=== PATIENT | female | born 1960 | race Caucasian/White ===

== ENCOUNTER 2018-12-09 00:56 | Emergency (ER) | payer BC, OTHER ==
--- OUTSIDE RECORDS SUMMARY | 2018-12-09 01:00 | XMS REPORT | Summary of Care ---
:1960 Author Organization [facility] Address [address] [place] [address] Care Team Providers Name Role Phone Lam Hugo Primary Care Provider Reason for Visit Reason Comments Skin Check Encounter Details Date Type Department Care Team Description 12/04/2018 Office Visit [facility] Allan Ross Seborrheic keratosis ( Primary Dx); Dermatology- PMD History of nonmelanoma skin cancer; [address] Neoplasm of uncertain behavior of skin; [facility] [place], [place] Gomez angioma; [address] [place] [phone] [facility], 5th Floor [phone] [place] [address] Allergies No Known Allergiesdocumented as of this encounter (statuses as of 12/08/2018) Medications No known medicationsdocumented as of this encounter (statuses as of 12/08/2018) Active Problems Problem Noted Date 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 07/18/2017 documented as of this encounter (statuses as of 12/08/2018) Resolved Problems Problem Noted Date Resolved Date Dysfunctional uterine bleeding 06/02/2017 07/18/2017 Overview: Added automatically from request for surgery [id number] documented as of this encounter (statuses as of 12/08/2018) Social History Tobacco Use Types Packs/Day Years Used Date Former Smoker Cigarettes Smokeless Tobacco: Never Used Alcohol Use Drinks/Week oz/Week Comments Yes Sex Assigned at Date Recorded Not on file Job Start Date Occupation Industry Not on file Not on file Not on file Travel History Travel Start Travel End No recent travel history available. documented as of this encounter Last Filed Vital Signs Not on filedocumented in this encounter Progress Notes Davie Lopes MD - 12/04/2018 11:00 AM CDT Dermatology Clinic Note Cc: lesion on nose HPI Alice Walls is a 58 year old female who presents for a skin check. She notes that she has a scar on her nose that was removed more than one year ago and was a BCC. She says the scar is not painful but would like the spot checked to make sure there are no concerning signs. Histories Past Medical History: Diagnosis Date Cirrhosis History of hepatitis C Pap smear abnormality of cervix age 30's Portal hypertension SH: Lives in [place] Allergies No Known Allergies Medications No current outpatient medications on file prior to visit. No current facility-administered medications on file prior to visit. Review of Systems (-)=negative (+)=positive Constitutional: pain (-) Skin: growths (+), itching (-), bleeding (-), color change (-) Physical Exam There were no vitals taken for this visit. Positive (+), Negative (-) General : No acute distress, awake, well developed, well nourished Psychiatric: Normal affect, mood, judgement, and thought content Neuro: Alert, oriented to person, place, situation FACE: Negative EYES: Negative NOSE: Positive EARS: Negative SCALP: Negative NECK: Negative CHEST: Negative ABDOMEN: Negative BACK: Negative RIGHT ARM: Negative LEFT ARM: Negative RIGHT LEG: Positive LEFT LEG: Positive (-)=Negative,(+)=Positive Actinic Keratosis (A): erythematous scaling papules Gomez Hemaniogioma (CH): smooth red and purple papules Dermatitis Erythema (DE): mild to moderate erythema and scaling Dermatitis Lichenified (DL): lichenification and thickening Dermatitis Weeping (DW): weeping and excoriation Inflamed Seborrheic Keratosis (ISK): inflamed warty brown papules and plaques Millium (ML): Small white cystic papule Molluscum Contagiosum (MC): umbilicated papule Nevus Macular (NM): well circumscribed evenly pigmented macule Nevus Papular ([employer]): well circumscribed evenly pigmented papule Psoriasis Circumscribed (PC): well circumscribed erythema and scaling Psoriasis Diffuse (PD): diffuse patches of erythema and scaling Seborrheic Keratosis (SK): verrucous brown papules and plaques Scar (SR): cicatricial change Verruca Vulgarus (W): warty hyperkeratotic papule Assessment/Plan 1. [id number] right posterior leg - discussed benign nature; patient reassured - monitor 2. Neoplasm of Uncertain Behavior - right hand - Ddx: SCC-KA vs HAK - Discussed differential diagnosis and treatment options with patient. Risks discussed (pain, infection, bleeding, scarring). Verbal consent obtained - Area prepped with alcohol. Local anesthesia obtained with 1% lidocaine with epinephrine. 1.0 cm tangential bx performed. Specimen sent to pathology for analysis, pt to be contacted with results. Hemostasis obtained with AlCl. Vaseline and bandage applied. Wound care discussed. 3. Seborrheic Keratoses - Discussed likely etiology, expected course and management options with patient - Benign, reassurance offered - LN2 offered 4. Gomez Angioma - Discussed likely etiology, expected course and management options with patient - Benign, no treatment necessary 5. Hx of NMSC BCC of nose s/p treatment - well healed scar - no sign of recurrence - monitor RTC 12 months Patient was seen and plan of care was discussed with Dr. Ross. Swami Marianne MD PGY 2 Dermatology Resident documented in this encounter Plan of Treatment Date Type Specialty Care Team Description 12/18/2018 Office Visit Dermatology Allan Ross MD [address] [place] [phone] 03/12/2019 Office Visit Dermatology Allan Ross MD [address] [place] [phone] 03/12/2019 Office Visit Obstetrics & Gynecology Yu Milton DNP [address] [place], [place] [phone] Health Maintenance Due Date Last Done Comments HEPATITIS C (HCV) SCREEN 1960 DTaP,Tdap,and Td Vaccines (1 - 10/07/1979 Tdap) COLONOSCOPY 2010 Zoster Recombinant Vaccine 2010 (SHINGRIX) (1 of 2) LUNG CANCER SCREEN: Recommended 10/07/2015 for age 55-80 with 30 + pack year history MAMMOGRAM 10/15/2017 10/15/2016 INFLUENZA VACCINE (#1) 2018 PAP SMEAR 10/16/2019 10/15/2016 PNEUMOCOCCAL 0-64 YEARS COMBINED Aged Out No longer eligible based on SERIES patient's age to complete this topic documented as of this encounter Procedures Procedure Name Priority Date/Time Associated Diagnosis Comments DERMATOPATHOLOGY TISSUE Routine 12/04/2018 Results for this EXAM procedure are in the results section. documented in this encounter Results DERMATOPATHOLOGY TISSUE EXAM (12/04/2018) Specimen Performing Organization Address City/State/Zipcode Phone Number [facility] documented in this encounter Visit Diagnoses Diagnosis Seborrheic keratosis - Primary Other seborrheic keratosis History of nonmelanoma skin cancer Personal history of other malignant neoplasm of skin Neoplasm of uncertain behavior of skin Gomez angioma Nevus, non-neoplastic Caf au la[employer] spot Other dyschromia documented in this encounter Insurance Payer Benefit Plan Subscriber ID Effective Dates Phone Address Type / Group BCBS OF [facility] [id number] 2016-Prese [phone] [address] PPO/POS [facility] [id number] [place] [address] documented as of this encounter
--- OUTSIDE RECORDS SUMMARY | 2018-12-09 01:00 | XMS REPORT | Clinical Summary ---
:1960 Author Organization [facility] Address [address] [place] [address] Care Team Providers Name Role Phone Lam Hugo MD Primary Care Provider Allergies No Known Allergies Medications Medication Sig Dispensed Refills Start End Date Status Date lactulose Take 30 mLs (20 g 500 mL 9 10/31/19 Discontinued (CHRONULAC) 10 total) by mouth 3 7 19 gram/15 mL (three) times daily solutionIndicatio for 10 days. ns: Esophageal varices in cirrhosis (HCC), Other cirrhosis of liver (HCC) lactulose Take 30 mLs (20 g 500 mL 9 11/10/19 (CHRONULAC) 10 total) by mouth 3 9 19 gram/15 mL (three) times daily solutionIndicatio for 10 days. ns: Esophageal varices in cirrhosis (HCC), Other cirrhosis of liver (HCC), Constipation, unspecified constipation type, Screening for malignant neoplasm hepatitis B Inject 1 Syringe 1 Syringe 2 10/31/19 vacc-CpG 1018, intramuscularly once 9 19 PF, 20 mcg/0.5 mL for 1 dose To be SyrgIndications: done at 0, 1, 6 Other cirrhosis month intervals.. of liver (HCC), Need for vaccination against hepatitis B virus Active Problems Problem Noted Date Presumed fatty liver 07/29/2015 SVR (10/14/14)-Hepatitis C virus infection without hepatic coma, 07/31/2014 unspecified chronicity Insomnia 03/13/2014 Elevated ferritin 11/07/2012 Prolonged INR 11/07/2012 Cirrhosis of liver 10/04/2012 Portal hypertension 10/04/2012 Esophageal varices in cirrhosis 10/04/2012 Screening for malignant neoplasm 10/04/2012 Screening for immunity disorders 10/04/2012 Anxiety 10/04/2012 Splenomegaly 10/04/2012 Obesity 10/04/2012 Encounters Date Type Specialty Care Team Description 11/17/2018 Hospital Encounter Radiology Azra Valente Esophageal varices in cirrhosis; MD Zay Other cirrhosis of liver (HCC); Constipation, unspecified constipation type; Screening for malignant neoplasm; Need for vaccination against hepatitis B virus; Elevated glucose 11/16/2018 Outside Orders Lam Hugo MD 10/30/2018 Office Visit Hepatology Azra Valente Other cirrhosis of liver ( HCC) (Primary Dx); MD Zay Esophageal varices in cirrhosis; Judy Norman Constipation, unspecified constipation type; MARKY Argueta Screening for malignant neoplasm; Need for vaccination against hepatitis B virus; Elevated glucose 08/16/2018 Abstract Hepatology Kayy Frazier RN 08/16/2018 Orders Only Hepatology Kayy Frazier, Cirrhosis of liver RN without ascites, unspecified hepatic cirrhosis type (HCC) (Primary Dx) after 12/08/2017 Immunizations Name Dates Previously Given Next Due Influenza TIV (IM) 02/14/2014 Family History Medical History Relation Name Comments Other Father Triple Bypass Diabetes Mother Thyroid disease Sister Relation Name Status Comments Father Alive Mother Alive Sister Alive Sister Social History Tobacco Use Types Packs/Day Years Used Date Never Smoker Smokeless Tobacco: Never Used Alcohol Use Drinks/Week oz/Week Comments No Sex Assigned at Date Recorded Not on file Job Start Date Occupation Industry Not on file Not on file Not on file Travel History Travel Start Travel End No recent travel history available. Last Filed Vital Signs Vital Sign Reading Time Taken Blood Pressure 126/72 10/30/2018 2:37 PM CDT Pulse 70 10/30/2018 2:37 PM CDT Temperature 36.9 C (98.4 F) 10/30/2018 2:37 PM CDT Respiratory Rate 18 10/30/2018 2:37 PM CDT Oxygen Saturation 97% 10/30/2018 2:37 PM CDT Inhaled Oxygen Concentration - - Weight 91 kg (200 lb 11.2 oz) 10/30/2018 2:37 PM CDT Height 160 cm (5' 3") 10/30/2018 2:37 PM CDT Body Mass Index 35.55 10/30/2018 2:37 PM CDT Plan of Treatment Date Type Specialty Care Team Description 05/02/2019 Office Visit Hepatology Resource, [facility] E Procedures Procedure Name Priority Date/Time Associated Diagnosis Comments MR ABDOMEN Routine 11/17/2018 2:57 Esophageal varices Results for this WITH/WITHOUT IV PM CDT in cirrhosis procedure are in CONTRAST Other cirrhosis of the results liver (HCC) section. Constipation, unspecified constipation type Screening for malignant neoplasm Need for vaccination against hepatitis B virus Elevated glucose POCT-CREATININE Routine 11/17/2018 2:20 Results for this PM CDT procedure are in the results section. PLATELET ESTIMATION Routine 08/31/2018 1:47 Results for this PM CDT procedure are in the results section. BASIC METABOLIC PANEL Routine 08/31/2018 1:47 Cirrhosis of liver Results for this (7) PM CDT without ascites, procedure are in unspecified hepatic the results cirrhosis type (HCC) section. HEPATIC FUNCTION Routine 08/31/2018 1:47 Cirrhosis of liver Results for this PANEL PM CDT without ascites, procedure are in unspecified hepatic the results cirrhosis type (HCC) section. CBC W/PLT COUNT & Routine 08/31/2018 1:47 Cirrhosis of liver Results for this AUTO DIFFERENTIAL PM CDT without ascites, procedure are in unspecified hepatic the results cirrhosis type (HCC) section. PROTHROMBIN TIME/INR Routine 08/31/2018 1:47 Cirrhosis of liver Results for this PM CDT without ascites, procedure are in unspecified hepatic the results cirrhosis type (HCC) section. ALPHA FETOPROTEIN Routine 08/31/2018 1:47 Cirrhosis of liver Results for this (AFP), TUMOR MARKER PM CDT without ascites, procedure are in unspecified hepatic the results cirrhosis type (HCC) section. after 12/08/2017 Results MR abdomen with/without IV contrast (11/17/2018 2:57 PM CDT) Specimen Narrative Performed At FINAL REPORT [employer] [facility]UST TECHNIQUE: MRI of the abdomen WITHOUT and WITH intravenous contrast. INDICATION: 58-year-old woman with cirrhosis. COMPARISON: Abdomen MRI 11/25/2017. FINDINGS: LOWER THORAX: Unremarkable. LIVER: Nodular liver contour, consistent with cirrhosis. No suspicious hepatic lesions. Persistent scattered tiny subcentimeter arterially enhancing foci in the liver without corresponding T2 signal abnormality, washout, or pseudocapsule. BILIARY: Gallbladder is unremarkable. No biliary ductal dilatation or filling defect. SPLEEN: The spleen is prominent and measures 17.4 cm in the craniocaudal dimension. PANCREAS: No focal masses or ductal dilatation. ADRENALS: No adrenal nodules. KIDNEYS/URETERS: No hydronephrosis or solid mass lesions. Unchanged 1.2 x 1.3 cm right renal cyst. Unchanged subcentimeter left renal cysts. PERITONEUM/RETROPERITONEUM: No free fluid. LYMPH NODES: No lymphadenopathy. VESSELS: Nonocclusive thrombus in the right portal vein extends into the anterior branch, new since prior MRI. The remaining portal system and hepatic veins are patent. Main portal vein measures up to 1.7 cm in diameter. Esophageal and perisplenic varices with spontaneous splenorenal shunt. Recanalized umbilical vein. Abdominal aorta is within normal limits in caliber. GI TRACT: No distention or wall thickening. BONES AND SOFT TISSUES: Degenerative changes of the visualized spine. Unchanged 0.8 cm fat-containing lesion in the left aspect of L1 vertebral body, likely an intraosseous hemangioma. Soft tissues are unremarkable. IMPRESSION: Cirrhosis with portal hypertension. No suspicious liver lesions. Persistent tiny subcentimeter arterially enhancing foci in the liver are indeterminate and may be shunts. Nonocclusive thrombus in the right portal vein extending into the anterior branch, new since prior MRI. Signed: Romel Briggs MD Report Verified Date/Time:11/17/2018 16:16:22 Reading Location: [address] Radiology Reading Room Procedure Note Interface, External Ris In - 11/17/2018 4:18 PM CDT FINAL REPORT TECHNIQUE: MRI of the abdomen WITHOUT and WITH intravenous contrast. INDICATION: 58-year-old woman with cirrhosis. COMPARISON: Abdomen MRI 11/25/2017. FINDINGS: LOWER THORAX: Unremarkable. LIVER: Nodular liver contour, consistent with cirrhosis. No suspicious hepatic lesions. Persistent scattered tiny subcentimeter arterially enhancing foci in the liver without corresponding T2 signal abnormality, washout, or pseudocapsule. BILIARY: Gallbladder is unremarkable. No biliary ductal dilatation or filling defect. SPLEEN: The spleen is prominent and measures 17.4 cm in the craniocaudal dimension. PANCREAS: No focal masses or ductal dilatation. ADRENALS: No adrenal nodules. KIDNEYS/URETERS: No hydronephrosis or solid mass lesions. Unchanged 1.2 x 1.3 cm right renal cyst. Unchanged subcentimeter left renal cysts. PERITONEUM/RETROPERITONEUM: No free fluid. LYMPH NODES: No lymphadenopathy. VESSELS: Nonocclusive thrombus in the right portal vein extends into the anterior branch, new since prior MRI. The remaining portal system and hepatic veins are patent. Main portal vein measures up to 1.7 cm in diameter. Esophageal and perisplenic varices with spontaneous splenorenal shunt. Recanalized umbilical vein. Abdominal aorta is within normal limits in caliber. GI TRACT: No distention or wall thickening. BONES AND SOFT TISSUES: Degenerative changes of the visualized spine. Unchanged 0.8 cm fat-containing lesion in the left aspect of L1 vertebral body, likely an intraosseous hemangioma. Soft tissues are unremarkable. IMPRESSION: Cirrhosis with portal hypertension. No suspicious liver lesions. Persistent tiny subcentimeter arterially enhancing foci in the liver are indeterminate and may be shunts. Nonocclusive thrombus in the right portal vein extending into the anterior branch, new since prior MRI. Signed: Romel Briggs MD Report Verified Date/Time: 11/17/2018 16:16:22 Reading Location: [address] Radiology Reading Room Performing Organization Address [facility] Phone Number RIS POC-Creatinine (11/17/2018 2:20 PM CDT) POC-Creatinine 0.4 (L)Comment: TESTED AT 0.6 - 1.3 mg/dL [facility] [address] [place] [address] POC-EGFR 164 mL/min/1.73M2 [facility] CENTER Specimen Blood Performing Organization Address City/[facility]/Zipcode Phone Number [address] [address] CENTER PLATELET ESTIMATION (08/31/2018 1:47 PM CDT) Platelet Estimate DECREASED (A) ADEQUATE [facility] Specimen Narrative Performed At FASTING:NO [facility] FASTING: NO Resulting Agency Comment Performing Organization Information: Site ID: [id number] Name: [facility] Address: [address] [place] [phone] Director: Licha Christy Performing Organization Address [facility] Phone Number [facility] [address] [place] [address] [facility] Alpha fetoprotein (AFP), tumor marker (08/31/2018 1:47 PM CDT) Alpha-Fetoprotein 7.8 (H) ng/mL [facility] Comment: Reference Range: <6.1 The use of AFP as a tumor marker in females is not recommended. This test was performed using the Carl Aleah chemiluminescent method. Values obtained from different assay methods cannot be used interchangeably. AFP levels, regardless of value, should not be interpreted as absolute evidence of the presence or absence of disease. Specimen Blood Narrative Performed At FASTING:NO [facility] FASTING: NO Resulting Agency Comment Performing Organization Information: Site ID: [id number] Name: [facility] Address: [address] [place] [phone] Director: Dr. Noble Harding Performing Organization Address [facility] Phone Number [facility] [address] [place] [address] [facility] Pro-time/INR (08/31/2018 1:47 PM CDT) INR 1.1 [facility] Comment: Reference Range 0.9-1.1 Moderate-intensity Warfarin Therapy 2.0-3.0 Higher-intensity Warfarin Therapy 3.0-4.0 PT 11.3 9.0 - 11.5 sec [facility] Comment: For more information on this test, go to: http://education.BeatSwitch.Braintech/faq/INL734 Specimen Blood Narrative Performed At FASTING:NO [facility] FASTING: NO Resulting Agency Comment Performing Organization Information: Site ID: [id number] Name: [facility] Address: [address] [place] [phone] Director: Licha Christy Performing Organization Address [facility] Phone Number [facility] [address] [place] [address] [facility] CBC with platelet count + automated diff (08/31/2018 1:47 PM CDT) WBC 3.4 (L) 3.8 - 10.8 Thousand/uL [facility] RBC 4.49 3.80 - 5.10 Million/uL [facility] Hemoglobin 14.1 11.7 - 15.5 g/dL [facility] Hematocrit 40.7 35.0 - 45.0 % [facility] MCV 90.6 80.0 - 100.0 fL [facility] MCH 31.4 27.0 - 33.0 pg [facility] MCHC 34.6 32.0 - 36.0 g/dL [facility] RDW 12.9 11.0 - 15.0 % [facility] Platelets 67 (L) 140 - 400 Thousand/uL [facility] MPV 11.6 7.5 - 12.5 fL [facility] # Neutros 1,652 1,500 - 7,800 cells/uL [facility] # Lymphs 1,387 850 - 3,900 cells/uL [facility] # Monos 289 200 - 950 cells/uL [facility] # Eos 61 15 - 500 cells/uL [facility] # Baso 10 0 - 200 cells/uL [facility] % Neutros 48.6 % [facility] % Lymphs 40.8 % [facility] % Monos 8.5 % [facility] % Eos 1.8 % [facility] % Baso 0.3 % [facility] Specimen Blood Narrative Performed At FASTING:NO [facility] FASTING: NO Resulting Agency Comment Performing Organization Information: Site ID: [id number] Name: [facility] Address: [address] [place] [phone] Director: Licha Christy Performing Organization Address City/State/Zipcode Phone Number [facility] [address] [place] [address] [facility] Hepatic function panel (08/31/2018 1:47 PM CDT) Protein, Total, Serum 7.2 6.1 - 8.1 g/dL [facility] Albumin 4.3 3.6 - 5.1 g/dL [facility] GLOBULIN (QUEST) 2.9 1.9 - 3.7 g/dL (calc) [facility] Albumin Globulin Ratio 1.5 1.0 - 2.5 (calc) [facility] Bilirubin, Total 1.2 0.2 - 1.2 mg/dL [facility] Bilirubin, Direct 0.2 < OR=0.2 mg/dL [facility] Bilirubin, Indirect 1.0 0.2 - 1.2 mg/dL (calc) [facility] Alkaline Phosphatase, S 115 33 - 130 U/L [facility] AST (SGOT) 17 10 - 35 U/L [facility] ALT (SGPT) 17 6 - 29 U/L [facility] Specimen Blood Narrative Performed At FASTING:NO [facility] FASTING: NO Resulting Agency Comment Performing Organization Information: Site ID: [id number] Name: [facility] Address: [address] [place] [phone] Director: Licha Christy Performing Organization Address [facility] Phone Number [facility] [address] [place] [address] [place] Basic Metabolic Panel (08/31/2018 1:47 PM CDT) Glucose 266 (H) 65 - 139 mg/dL [facility] Comment: Non-fasting reference interval BUN 18 7 - 25 mg/dL [facility] Creatinine 0.62 0.50 - 1.05 mg/dL [facility] Comment: For patients >49 years of age, the reference limit for Creatinine is approximately 13% higher for people identified as -[place]. eGFR If NonAfricn Am 100 > OR=60 mL/min/1.73m2 [facility] eGFR If Africn Am 116 > OR=60 mL/min/1.73m2 [facility] BUN/Creatinine Ratio NOT APPLICABLE 6 - 22 (calc) [facility] Sodium 140 135 - 146 mmol/L [facility] Potassium, Serum 3.7 3.5 - 5.3 mmol/L [facility] Chloride 102 98 - 110 mmol/L [facility] Carbon Dioxide, Total 29 20 - 32 mmol/L [facility] Calcium, Serum 9.6 8.6 - 10.4 mg/dL [facility] Specimen Blood Narrative Performed At FASTING:NO [facility] FASTING: NO Resulting Agency Comment Performing Organization Information: Site ID: [id number] Name: [facility] Address: [address] [place] [phone] Director: Licha Christy Performing Organization Address [facility] Phone Number [facility] [address] [place] [address] [place] after 12/08/2017 Insurance Payer Benefit Plan / Subscriber ID Type Phone Address Group BLUE CROSS/BLUE BCBS PPO POS EPO xxxxxxxxxxxx PPO [phone] [address] [place] [address] (Work)
--- OUTSIDE RECORDS SUMMARY | 2018-12-09 01:00 | XMS REPORT | Summary of Care ---
:1960 Author Organization [facility] Address [address] [place] [address] Care Team Providers Name Role Phone Lam Hugo Primary Care Provider Reason for Visit Reason Comments Skin Check Encounter Details Date Type Department Care Team Description 12/04/2018 Office Visit [facility] Allan Ross Seborrheic keratosis ( Primary Dx); Dermatology- PMD History of nonmelanoma skin cancer; [address] Neoplasm of uncertain behavior of skin; [facility] [place], [place] Gomez angioma; [address] [place] [phone] [facility], 5th Floor [phone] [place] [address] Allergies No Known Allergiesdocumented as of this encounter (statuses as of 12/04/2018) Medications No known medicationsdocumented as of this encounter (statuses as of 12/04/2018) Active Problems Problem Noted Date 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 07/18/2017 documented as of this encounter (statuses as of 12/04/2018) Resolved Problems Problem Noted Date Resolved Date Dysfunctional uterine bleeding 06/02/2017 07/18/2017 Overview: Added automatically from request for surgery [id number] documented as of this encounter (statuses as of 12/04/2018) Social History Tobacco Use Types Packs/Day Years [...] age 30's Portal hypertension SH: Lives in [employer] Allergies No Known Allergies Medications No current [...] well circumscribed evenly pigmented macule Nevus Papular (PROFESSOR OF THEOLOGY): well circumscribed evenly pigmented papule Psoriasis Circumscribed (PC): well circumscribed erythema and scaling Psoriasis Diffuse (PD): diffuse patches of erythema and scaling Seborrheic Keratosis (SK): verrucous brown papules and plaques Scar (SR): cicatricial change Verruca Vulgarus (W): warty hyperkeratotic papule Assessment/Plan 1. Bouc-pa-zbly right posterior leg - discussed benign nature; [...] Treatment Date Type Specialty Care Team Description 03/12/2019 Office Visit Dermatology Allan Ross MD [address] [place] [phone] Health Maintenance Due Date Last Done Comments HEPATITIS C (HCV) SCREEN 1960 DTaP,Tdap,and Td Vaccines (1 - 10/07/1979 Tdap) COLONOSCOPY 2010 Zoster Recombinant Vaccine 2010 (SHINGRIX) (1 of 2) LUNG CANCER SCREEN: Recommended 10/07/2015 for age 55-80 with 30 + pack year history MAMMOGRAM 10/15/2017 10/15/2016 INFLUENZA VACCINE 12/24/2018 PAP SMEAR 10/16/2019 10/15/2016 PNEUMOCOCCAL 0-64 YEARS COMBINED Aged Out No longer eligible based on SERIES patient's age to complete this topic documented as of this encounter Results Not on filedocumented in this encounter Visit Diagnoses Diagnosis Seborrheic keratosis - Primary Other seborrheic keratosis History of nonmelanoma skin cancer Personal history of other malignant neoplasm of skin Neoplasm of uncertain behavior of skin Gomez angioma Nevus, non-neoplastic Caf au la[employer] spot Other dyschromia documented in this encounter Insurance Payer Benefit Plan Subscriber ID Effective Dates Phone Address Type / Group BCBS [facility] [id number] 2016-Prese [phone] [address] PPO/POS [facility] [id number] [place] [address] documented as of this encounter
--- OUTSIDE RECORDS SUMMARY | 2018-12-09 01:00 | XMS REPORT | Summary of Care ---
:1960 Author Organization [facility] Address [address] [place] [id number] Care Team Providers Name Role Phone Lam Hugo Primary Care Provider Reason for Visit Reason Comments Skin Check Encounter Details Date Type Department Care Team Description 12/04/2018 Office Visit [facility] Allan Ross Seborrheic keratosis ( Primary Dx); Dermatology- PMD History of nonmelanoma skin cancer; [address] Neoplasm of uncertain behavior of skin; [facility] [place], [place] Gomez angioma; [address] [place] [phone] [facility], 5th Floor [phone] [place] [address] Allergies No Known Allergiesdocumented as [...] Overview: Added automatically from request for surgery [id number] documented as of this encounter (statuses as [...] age 30's Portal hypertension SH: Lives in [place] Allergies No Known Allergies Medications No current [...] well circumscribed evenly pigmented macule Nevus Papular (SAFETY CONSULTANT): well circumscribed evenly pigmented papule Psoriasis Circumscribed (PC): well circumscribed erythema and scaling Psoriasis Diffuse (PD): diffuse patches of erythema and scaling Seborrheic Keratosis (SK): verrucous brown papules and plaques Scar (SR): cicatricial change Verruca Vulgarus (W): warty hyperkeratotic papule Assessment/Plan 1. Ccob-un-dqyd right posterior leg - discussed benign nature; [...] Visit Dermatology Allan Ross MD [address] [place] [phone] Health Maintenance Due Date Last Done Comments [...] Dates Phone Address Type / Group BCBS [facility] [id number] 2016-Prese [phone] [address] PPO/POS [facility] [id number] [place] [address] documented as of this encounter
--- OUTSIDE RECORDS SUMMARY | 2018-12-09 01:00 | XMS REPORT | Summary of Care ---
:1960 Author Organization [facility] Address [address] [place] [address] Care Team Providers Name Role Phone Lam Hugo Primary Care Provider Encounter Details Date Type Department Care Team Description 12/04/2018 Letter (Out) [facility] [employer] Messages Doctor Unassigned, No [address] [facility] [place] [phone] [address] [facility] [phone] [place] [address] Allergies No Known Allergiesdocumented as of this [...] Overview: Added automatically from request for surgery [id number] documented as of this encounter (statuses as [...] Signs Not on filedocumented in this encounter Plan of Treatment Health Maintenance Due Date Last Done Comments [...] Results Not on filedocumented in this encounter Insurance Payer Benefit Plan Subscriber ID Effective Dates Phone Address Type / Group [employer] [place] [id number] 2016-Yury [phone] [address] PPO/POS [place] [id number] [place] [address] documented as of this encounter
--- OUTSIDE RECORDS SUMMARY | 2018-12-09 01:00 | XMS REPORT | Summary of Care ---
:1960 Author Organization [facility] Address [address] [place] [address] Care Team Providers Name Role Phone Lam Hugo Primary Care Provider Encounter Details Date Type Department Care Team Description 12/04/2018 Orders Only [facility] Doctor Unassigned, No [address] [facility] [place] [address] 301 [place] [address] Allergies No Known Allergiesdocumented as of this [...] Overview: Added automatically from request for surgery [id number] documented as of this encounter (statuses as [...] C (HCV) SCREEN 1960 DTaP,Tdap,and Td Vaccines (10/07/1979 Tdap) COLONOSCOPY 2010 Zoster Recombinant Vaccine 2010 [...] Procedure Name Priority Date/Time Associated Diagnosis Comments ASSIGNMENT OF BENEFITS Routine 12/04/2018 11:06 AM CDT documented in this encounter Results Not on filedocumented in this encounter Insurance Payer Benefit Plan Subscriber ID Effective Dates Phone Address Type / Group [facility] [id number] 2016-Yury [phone] [address] PPO/POS [place] nt [id number] [place] [address] documented as of this encounter
[2018-12-09] MEDS ORDERED: HYDROCODONE/APAP 7.5/325 MG TAB ONE (01:13)
--- NOTE | 2018-12-09 01:14 | ER ---
Nurse's Notes [facility] Name: Alice Walls Age: 58 yrs Sex: Female : 1960 Arrival Date: 12/09/2018 Time: 00:58 Bed 5 Private MD: Lam Hugo T Diagnosis: Radiculopathy Presentation: 12/09 01:04 Presenting complaint: Patient states: I slept last Tuesday with my right hand under my rv head and it is hurting until now. I thought it will go away. Today, I went to Urgent care near where I work and he asked me to do a bunch of staff. pain is worse. I can't put pressure on it but I can move it in all direction. Transition of care: patient was not received from another setting of care. Onset of symptoms was December 08, 2018 at 08:00. Risk Assessment: Do you want to hurt yourself or someone else? Patient reports no desire to harm self or others. Initial Sepsis Screen: Does the patient meet any 2 criteria? No. Patient's initial sepsis screen is negative. Does the patient have a suspected source of infection? No. Patient's initial sepsis screen is negative. Care prior to arrival: None. 01:04 Method Of Arrival: Ambulatory rv 01:04 Acuity: SHAHZAD 4 rv Triage Assessment: 01:08 General: Appears in no apparent distress. uncomfortable, Behavior is calm, cooperative. ak1 Pain: Complains of pain in right scapular area. Historical: - Allergies: 01:09 No Known Allergies; rv - Home Meds: 01:09 None [Active]; rv - PMHx: 01: None; rv - PSHx: 01:09 Appendectomy; rv - Immunization history:: Adult Immunizations up to date. - Social history:: Smoking status: unknown. - Ebola Screening: : No symptoms or risks identified at this time. Screenin:08 Abuse screen: Denies threats or abuse. Denies injuries from another. Nutritional ak1 screening: No deficits noted. Tuberculosis screening: No symptoms or risk factors identified. Fall Risk None identified. Assessment: 01:09 General: Appears in no apparent distress. uncomfortable, Behavior is calm, cooperative. ak1 Pain: Complains of pain in right scapular area. Neuro: Level of Consciousness is awake, alert, obeys commands, Oriented to person, place, time, situation, Moves all extremities. Cardiovascular: No deficits noted. Respiratory: No deficits noted. GI: No signs and/or symptoms were reported involving the gastrointestinal system. : No signs and/or symptoms were reported regarding the genitourinary system. EENT: No signs and/or symptoms were reported regarding the EENT system. Derm: No signs and/or symptoms reported regarding the dermatologic system. Musculoskeletal: Capillary refill < 3 seconds, Range of motion: intact in all extremities, pt c/o pain to right scapula. pt seen at urgent care today with steroids and muscle relaxant given along with Xray of right shoulder. pt c/o increased pain and unable to sleep. 01:20 Reassessment: Patient appears in no apparent distress at this time. No changes from ak1 previously documented assessment. Patient and/or family updated on plan of care and expected duration. Pain level reassessed. Patient is alert, oriented x 3, equal unlabored respirations, skin warm/dry/pink. pt verbalized understanding of sling instruction. Vital Signs: 01:08 BP 145 / 81; Pulse 75; Resp 18; Temp 97.9(O); Pulse Ox 99% on R/A; Weight 89.81 kg (R); ak1 Height 5 ft. 3 in. (160.02 cm) (R); Pain 8/10; 01:18 BP 141 / 72; Pulse 80; Resp 18; Pulse Ox 98% on R/A; mw2 01:08 Body Mass Index 35.07 (89.81 kg, 160.02 cm) ak1 ED Course: 00:58 Patient arrived in ED. es 01:01 Lam Hugo MD is Private Physician. es 01:01 Agnieszka Bobby, KRISTAN is Primary Nurse. ak1 01:02 Indira Resendiz [facility]-C [facility]. kb 01:02 Jacobo Bishop MD is Attending Physician. kb 01:07 Triage completed. rv 01:11 Patient has correct armband on for positive identification. Bed in low position. Call ak1 light in reach. Side rails up X 1. Adult w/ patient. Pulse ox on. NIBP on. pt stated she has a ride home. 01:19 Arm band placed on Patient placed in an exam room, on a stretcher, on pulse oximetry, ak1 Patient notified of wait time. 01:19 No provider procedures requiring assistance completed. Patient did not have IV access ak1 during this emergency room visit. Administered Medications: :18 Drug: Granby (7.5 mg-325 mg) 1 tabs Route: PO; ak1 :19 Follow up: Response: No adverse reaction; Medication administered at discharge.; RASS: ak1 Alert and Calm (0) Outcome: 01:13 Discharge ordered by MD. florez :19 Discharged to home ambulatory, with family. ak1 : Condition: good 01:19 Discharge instructions given to patient, Instructed on discharge instructions, follow up and referral plans. Demonstrated understanding of instructions, follow-up care. :23 Patient left the ED. ak1 Signatures: Indira Resendiz, HELIX COIL WINDER-C HELIX COIL WINDER-Velia Alex Amber, RN RN ak1 Cm Verma 2 Lucas Rossi RN RN rv
--- NOTE | 2018-12-09 01:14 | EDPHYS ---
Physician Documentation [facility] Name: Alice Walls Age: 58 yrs Sex: Female : 1960 Arrival Date: 12/09/2018 Time: 00:58 Bed 5 Private MD: Lam Hugo T ED Physician Jacobo Bishop HPI: 12/09 01:09 This 58 yrs old Female presents to ER via Ambulatory with complaints of kb Shoulder Pain. 01:09 The patient or guardian complains of pain, that is acute, tenderness. right scapular kb area. Context: The problem was sustained at home, resulted from sleeping with arm over head, The patient reports no decreased range of motion. The patient reports no obvious deformity. Onset: The symptoms/episode began/occurred 1 week(s) ago. Modifying factors: the symptoms are alleviated by nothing. The symptoms are aggravated by nothing. Associated signs and symptoms: The patient has no apparent associated signs or symptoms. Severity of symptoms: At their worst the symptoms were mild, moderate, in the emergency department the symptoms are unchanged. Treatment prior to arrival includes: no previous treatment. The patient has not experienced similar symptoms in the past. The patient has not recently seen a physician. Pt reports she slept with her arm over her head and woke up with a crick in her neck on Tuesday morning. States the pain radiated down her arm and then settled under her scapula. Went to the clinic at her work today and the provider there made her do some exercises and stretches that have made the pain under the scapula worse. Denies neck pain now. States pain still radiates down the back of her arm to her hand. Had x-ray today that was negative and was prescribed muscle relaxers and steroids that she hasn't started yet. . Historical: - Allergies: 01:09 No Known Allergies; rv - Home Meds: 01:09 None [Active]; rv - PMHx: 01: None; rv - PSHx: :09 Appendectomy; rv - Immunization history:: Adult Immunizations up to date. - Social history:: Smoking status: unknown. - Ebola Screening: : No symptoms or risks identified at this time. ROS: 01:07 Constitutional: Negative for fever, chills, and weight loss, Cardiovascular: Negative kb for chest pain, palpitations, and edema, Respiratory: Negative for shortness of breath, cough, wheezing, and pleuritic chest pain, Abdomen/GI: Negative for abdominal pain, nausea, vomiting, diarrhea, and constipation, Back: Negative for injury and pain, : Negative for injury, bleeding, discharge, and swelling, Skin: Negative for injury, rash, and discoloration, Neuro: Negative for headache, weakness, numbness, tingling, and seizure. 01:07 MS/extremity: Positive for pain, of the right scapular area. Exam: 01:07 Constitutional: This is a well developed, well nourished patient who is awake, alert, kb and in no acute distress. Head/Face: Normocephalic, atraumatic. Neck: Trachea midline, no thyromegaly or masses palpated, and no cervical lymphadenopathy. Supple, full range of motion without nuchal rigidity, or vertebral point tenderness. No Meningismus. Chest/axilla: Normal chest wall appearance and motion. Nontender with no deformity. No lesions are appreciated. Cardiovascular: Regular rate and rhythm with a normal S1 and S2. No gallops, murmurs, or rubs. Normal PMI, no JVD. No pulse deficits. Respiratory: Lungs have equal breath sounds bilaterally, clear to auscultation and percussion. No rales, rhonchi or wheezes noted. No increased work of breathing, no retractions or nasal flaring. Abdomen/GI: Soft, non-tender, with normal bowel sounds. No distension or tympany. No guarding or rebound. No evidence of tenderness throughout. Back: No spinal tenderness. No costovertebral tenderness. Full range of motion. Skin: Warm, dry with normal turgor. Normal color with no rashes, no lesions, and no evidence of cellulitis. Neuro: Awake and alert, GCS 15, oriented to person, place, time, and situation. Cranial nerves II-XII grossly intact. Motor strength 5/5 in all extremities. Sensory grossly intact. Cerebellar exam normal. Normal gait. 01:07 Musculoskeletal/extremity: Extremities: grossly normal except: noted in the right scapular area: pain, tenderness, ROM: intact in all extremities, Circulation is intact in all extremities. Sensation intact. Vital Signs: 01:08 BP 145 / 81; Pulse 75; Resp 18; Temp 97.9(O); Pulse Ox 99% on R/A; Weight 89.81 kg (R); ak1 Height 5 ft. 3 in. (160.02 cm) (R); Pain 8/10; 01:18 BP 141 / 72; Pulse 80; Resp 18; Pulse Ox 98% on R/A; mw2 01:08 Body Mass Index 35.07 (89.81 kg, 160.02 cm) ak1 MDM: 01:02 Patient medically screened. kb 01:07 Data reviewed: vital signs, nurses notes. Data interpreted: Pulse oximetry: on room air kb is 100 %. Interpretation: normal. Counseling: I had a detailed discussion with the patient and/or guardian regarding: the historical points, exam findings, and any diagnostic results supporting the discharge/admit diagnosis, the need for outpatient follow up, a family practitioner, to return to the emergency department if symptoms worsen or persist or if there are any questions or concerns that arise at home. 01:12 ED course: Educated to take the previously prescribed medications and use sling for kb comfort. . 12/09 01:07 Order name: Sling; Complete Time: 01:09 kb Administered Medications: 01:18 Drug: Roland (7.5 mg-325 mg) 1 tabs Route: PO; ak1 01:19 Follow up: Response: No adverse reaction; Medication administered at discharge.; RASS: ak1 Alert and Calm (0) Disposition: 04:42 Co-signature as Attending Physician, Jacobo Bishop MD I agree with the assessment and tw4 plan of care. Disposition: 12/09/18 01:13 Discharged to Home. Impression: Radiculopathy. - Condition is Stable. - Discharge Instructions: Cervical Radiculopathy, [id number]. - Medication Reconciliation Form, Thank You Letter, Antibiotic Education, Prescription Opioid Use form. - Follow up: Emergency Department; When: As needed; Reason: Worsening of condition. Follow up: Private Physician; When: 2 - 3 days; Reason: Recheck today's complaints, Continuance of care, Re-evaluation by your physician. Signatures: Indira Resendiz, Agnieszka Doyle RN RN ak1 Jacobo Bishop MD MD tw4 Lucas Rossi RN RN rv Corrections: (The following items were deleted from the chart) 01:23 01:13 12/09/2018 01:13 Discharged to Home. Impression: Radiculopathy. Condition is ak1 Stable. Forms are Medication Reconciliation Form, Thank You Letter, Antibiotic Education, Prescription Opioid Use. Follow up: Emergency Department; When: As needed; Reason: Worsening of condition. Follow up: Private Physician; When: 2 - 3 days; Reason: Recheck today's complaints, Continuance of care, Re-evaluation by your physician. kb
[2018-12-09 02:44] VITALS: TEMP 97.9
[2018-12-09 02:45] VITALS: BP 141/72; O2SAT 98
== END 2018-12-09 01:23 | disposition home or self-care (01) ==
LOC: ER 00:56
DX: M54.10 Radiculopathy, site unspecified (principal)
CPT/HCPCS: 99283